=== PATIENT | male | born 1995 | race Caucasian/White ===

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

== ENCOUNTER 2018-08-21 17:20 | Emergency (ER) | payer OTHER ==
[2018-08-21 17:39] VITALS: BP 126/89
--- NOTE | 2018-08-21 17:44 | EDPHY ---
H & P Stated Complaint: Landed jump on snowboard, L ankle injury, non-weight bearing, good CMS Time Seen by Provider: 08/21/18 17:39 HPI/ROS: HPI: This is a 22-year-old male who presents with Chief Complaint: Landed jump on snowboard, L ankle injury, non-weight bearing, good CMS Location: Left lateral ankle Quality: Injury Duration: 1-2 hours prior to arrival Signs and Symptoms: No bleeding, no radiation, no numbness, no weakness, no tingling, no incontinence, + decreased range of motion, + swelling, + pain, no fever Timing: Acute Severity: [id number] Context: Patient was at [facility] snowboarding, wearing a helmet, when he went off of a jump and landed wrong and leobardo it his left ankle. Patient reports that he felt immediate pain in the lateral aspect. He is able [place]board [place] the [place] and his friends drove him to the emergency room for further evaluation. Once he took off his snow boot he noticed swelling in the lateral aspect of his ankle. He reports increased pain with weight-bearing. No prior history of ankle sprain in that ankle. When patient fell he did not hit his head or lose consciousness. Denies neck pain/dizziness/nausea/vomiting/ amnesia. Modifying Factors: None Comment: ROS: A comprehensive 10 system review of systems is otherwise negative aside from elements mentioned in the history of present illness. MEDICAL/SURGICAL/SOCIAL HISTORY: Medical history: Generally healthy. Does not take any regular medications. Surgical history: Denies Social history: Never smoked. Student at [employer]. CONSTITUTIONAL: Well-developed, well-nourished, young adult white male, awake and alert, no obvious distress HEENT: Atraumatic and normocephalic. NECK: supple, no midline tenderness, flexion 45 degrees, extension 45 degrees, right and left lateral flexion 45 degrees. No meningismus. Cardiovascular: Normal S1/S2, tachycardia, regular rhythm, without murmur rub or gallop. PULMONARY/CHEST: Symmetrical and nontender. no crepitus. Clear to auscultation bilaterally. Good air movement. No accessory muscle usage. ABDOMEN: Soft, nondistended, nontender, no ecchymosis. EXTREMITIES: 2/2 pulses, strength 5/5, left Ankle: Plantar flexion to 50, dorsiflexion to 20. Foot inversion to 35 degree. + tenderness/swelling Anterior talofibular ligament. + tenderness/swelling Calcaneofibular ligament, + tenderness/swelling posterior talofibular ligament, + tenderness/swelling posterior inferior tibiofibular ligament. Achilles tendon intact. DIP/PIP/MCP flexion/extension intact with good light touch sensation. no deformities, no clubbing, no cyanosis or edema. NEUROLOGICAL: no focal neuro deficits. GCS 15. Light touch sensation intact. SKIN: Warm and dry, no erythema. no rash. Good capillary refill. Source: Patient Exam Limitations: No limitations - Personal History Current Tetanus/Diphtheria Vaccine: Yes - Medical/Surgical History Hx Asthma: No Hx Chronic Respiratory Disease: No Hx Diabetes: No Hx Cardiac Disease: No Hx Renal Disease: No Hx Cirrhosis: No Hx Alcoholism: No Hx HIV/AIDS: No Hx Splenectomy or Spleen Trauma: No Other PMH: denies - Social History Smoking Status: Never smoked Constitutional: Initial Vital Signs Temperature (C) 37.0 C 08/21/18 17:36 Heart Rate 121 H 08/21/18 17:36 Respiratory Rate 18 08/21/18 17:36 Blood Pressure 126/89 H 08/21/18 17:36 O2 Sat (%) 94 08/21/18 17:36 O2 Delivery Mode Room Air Allergies/Adverse Reactions: No Known Allergies Allergy (Verified 08/21/18 17:36) Home Medications: Medication Instructions Recorded Cephalexin [Keflex] 500 mg PO QID 5 Days cap 06/21/16 Medical Decision Making - Diagnostics Imaging Results: Imaging Impressions Ankle X-Ray 08/21/18 17:44 Impression: Lateral ankle sprain. No acute fracture. Procedures: Procedure: Splint placement. A left walking boot and crutches were applied. After application of the splint I returned and re-examined the patient. The splint was adequately immobilizing the joint and distal to the splint the patient's circulation and sensation was intact. ED Course/Re-evaluation: Vital signs reviewed and stable upon arrival. Ice pack applied Left ankle x-ray ordered my read and shows via PACs fracture, dislocation. Soft tissue swelling noted on the lateral aspect consistent with a sprain. Placed in walking boot, crutches, orthopedic follow-up as needed No signs of neurovascular compromise/tenting of skin/compartment syndrome/ extremities and joints examined above and below area of concern and are neurovascularly intact. This patient was seen under the supervision of my secondary supervising physician. I evaluated care for this patient independently. Differential Diagnosis: Ankle injury differential diagnosis includes but is not limited to tibia fracture, fibula fracture, metatarsal fracture, LisFranc fracture, achilles tendon rupture, sprain. Departure - Departure Disposition: Home, Routine, Self-Care Clinical Impression: Grade 2 ankle sprain Qualifiers: Encounter type: initial encounter Laterality: left Qualified Code(s): S93.402A - Sprain of unspecified ligament of left ankle, initial encounter Condition: Good Instructions: Ankle Sprain (DC), Crutch Instructions (ED) Additional Instructions: Wear the walking boot while out of bed until pain free or seen by Orthopedics. Use crutches to aid ambulation. Start with toe-touch weight-bearing status. Take Tylenol 650 mg every 4 hours and/or Ibuprofen 600 mg every 8 hours with food as needed for pain. Apply ice for 30 minutes at a time; 2-3 times per day for the next 1-2 days. Follow up with Orthopedics in 1-2 weeks if symptoms persist at which time they will evaluate and recommend with you if conservative management versus further imaging is indicated. The x-rays obtained in the emergency department today demonstrate no evidence of an obvious fracture. Sometimes fractures are not obvious on the initial set of x-rays performed in the ED. For this reason, you should have repeat x-rays performed in 7-10 days if you are having any pain exclude the possibility of an occult fracture. Referrals: Fran Ann MD [Medical Doctor] - As per Instructions
== END 2018-08-21 18:55 | disposition home or self-care (01) ==
DX: S93.402A Sprain of unspecified ligament of left ankle, initial encounter (principal); Y93.23 Activity, snow (alpine) (downhill) skiing, snowboarding, sledding, tobogganing and snow tubing; V00.311A Fall from snowboard, initial encounter; Y92.838 Other recreation area as the place of occurrence of the external cause
CPT/HCPCS: L4386